=== PATIENT | male | born 1975 | race Caucasian/White ===

== ENCOUNTER 2024-09-12 19:15 | Inpatient (IN) | payer MEDICAID ==
[~2024-09-12] VITALS: Ht 193 cm; Wt 109.1 kg
[2024-09-12] MEDS: HYDROcodone/acetaminophen 10/325mg tab PO ONE (20:00)
--- NOTE | 2024-09-12 20:27 | RADIOLOGY REPORT ---
INDICATION: pain TECHNIQUE: 5 views of the lumbar spine were obtained. COMPARISON: None FINDINGS: No evidence of vertebral fracture or compression deformity. Normal lordotic curvature without signi ficant through. Moderate spondylosis at L5-S1, otherwise minimal to mild. The imaged osseous pelvis and abdominal contents are unremarkable. IMPRESSION: 1. No acute finding of the lumbar spine.
[2024-09-12] MEDS: dexamethasone sod phosphate 10mg/ml inj IV STA (21:58)
[2024-09-12] MEDS: normal saline 1000ML IV soln IVB ONE (22:07)
--- NOTE | 2024-09-13 00:04 | Physician Documentation ---
History of Present Illness ~ Chief Complaint: Back Pain Stated Complaint: BACK PAIN Time Seen by MD: 00:03 OK to notify your PCP?: Yes Primary Medical Doctor: [facility] Source: patient, RN/MD, EMS, RN notes reviewed, EMS notes reviewed, old records Mode of Arrival: EMS Exam Limitations: no limitations HPI BED 16 This patient is a 48 y/o male who presents to ED with chief complaint of back pain. Patient states he has had this pain on and off for the past 5 years after he injured it while changing the breaks on a car. Patient states that for many years this pain would resolve on it's own after a week or two, and he never had insurance so he did not see a doctor for it. He does now have a PCP at [facility], but has never had imaging for his back done. Patient describes this pain as a sharp pain in his lower back, which radiates to the front. Patient reports with certain movements, such as when he is sitting or standing, this pain becomes an electrical jolt of pain. He states that this pain started worsening 6 months ago, but became significantly worse this morning to the point he is no longer able to walk. He was asked but denies any bowel or bladder incontiance. Denies any retention or constipation. States he was organizing a [employer] yesterday and twisted his back, which he thinks started this recent episode of severe pain. Patient denies any other associated symptoms at this time. Patient denies any other alleviating or exacerbating factors. Medication Reconciliation Allergies: Coded Allergies: No Known Allergies (Unverified , 09/12/24) No Active Prescriptions or Reported Meds Past Medical History Past Medical History: Chronic Pain Past Surgical History: tonsillectomy Smoking Status: Never smoker Alcohol Use: None Drug Use: none Review of Systems All Other Systems at this time: Reviewed and Negative Physical Exam Physical Exam Vital Signs: RN Vital Signs have been reviewed: Yes, Temperature: 99.2, Source: Oral, Heart Rate: 63, Respiratory Rate: 16, BP: 124/79, Pulse Oximetry: 93, Weight: 109.090 Oxygen Flow Rate: 0 Physical Exam General: Moderate distress secondary to pain. The patient is well developed, well nourished, nontoxic appearing. Skin: Sage, warm and dry with no rashes. HEENT: Head was normocephalic and atraumatic. Eyes - pupils equal, round, reactive to light and accommodation. Extraocular movements were intact. Conjunctivae were nonicteric. The mouth and oropharynx were clear with moist mucous membranes. There were no pharyngeal exudates or erythema. Neck: Supple and nontender. There was no jugular venous distention, lymphadenopathy, thyromegaly or masses. Chest: Clear to auscultation bilaterally without wheezes, rales or rhonchi. No accessory muscle use. No dullness to percussion. Heart: Rate regular and rhythmic. S1, S2. No murmurs. Palpation of the chest wall was normal. No rubs or thrills. Abdomen: Soft, nontender and nondistended. Positive bowel sounds. No guarding or rebound. No hepatosplenomegaly or palpable masses. Back Pain: Straight leg test positive with 45 degrees bilaterally. Tenderness to palpation to L4-L5. No CVA tenderness. Extremities: No cyanosis, clubbing or edema. The patient moves all extremities. Pulses were equal and symmetric. Neurologic: Cranial nerves II-XII were intact. Sensation was intact to light touch throughout. Motor strength was 5/5 in all four extremities. Deep tendon reflexes were intact in both upper and lower extremities. Motor Sensory Grossly Intact. Psychologic: The patient was oriented to person, place and time. The patient demonstrated appropriate judgement and insight. Progress Progress Note 0014: Paged Hospitalist 0034: Case discussed with hospitalist who agrees to evaluate patient for admission. Results/Orders Reviewed/noted all lab results: Yes Results/Orders Orders - CLAY BROWN MD Urinalysis, Cult If Indicated (09/12/24 19:21) Straight Cath For Urine Sample (09/12/24 19:21) Lumbar Spine Complte (09/12/24 20:19) Drug Screen, Urine (09/13/24 00:05) Urinalysis, Cult If Indicated (09/13/24 00:12) Mri Lumbar Spine (09/13/24 00:13) Page Hospitalist (09/13/24 00:14) Fill Out Med Reconciliation (09/13/24 00:14) Completed Orders - CLAY BROWN MD Hydrocodone/Apap 10/325 ([place] 10/325mg (09/12/24 19:50) Lumbar Spine Complte (09/12/24 20:19) Normal Saline 1000ml (0.9% Sodium Chlori (09/12/24 21:40) Cyclobenzaprine Tablet (Flexeril Tablet) (09/12/24 21:40) Dexamethasone Inj (Decadron 10mg/Ml Inj) (09/12/24 21:40) Cbc/Diff (09/13/24 00:12) Ketorolac Trometh 15mg/Ml Vial (Toradol (09/13/24 00:15) BMP (09/13/24 00:12) Hydromorphone 1 Mg/Ml/Pf (Dilaudid Inj.) (09/13/24 00:15) Medications Received in ER Medications (Trade) Dose Ordered Sig/Gerda Route PRN Reason Start Time Stop Time Status Last Admin Dose Admin ([place] 10/325mg tab) 1 tab ONCE ONCE PO 09/12/24 19:50 09/12/24 19:52 DC 09/12/24 20:00 1 TAB (0.9% sodium chloride (NS) 1000ml IV soln) 1,000 ml ONCE ONCE IVB 09/12/24 21:40 09/12/24 21:42 DC 09/12/24 22:07 1,000 ML (Flexeril tablet) 10 mg ONCE STAT PO 09/12/24 21:40 09/12/24 21:42 DC 09/12/24 21:58 10 MG (Decadron 10mg/ ml inj) 10 mg ONCE STAT IV 09/12/24 21:40 09/12/24 21:42 DC 09/12/24 21:58 10 MG (Toradol injection) 15 mg ONCE ONCE IV 09/13/24 00:15 09/13/24 00:16 DC 09/13/24 00:41 15 MG (Dilaudid inj.) 1 mg ONCE ONCE IV 09/13/24 00:15 09/13/24 00:29 DC 09/13/24 00:43 1 MG Vital Signs 09/12/24 09/12/24 09/12/24 09/12/24 19:22 19:31 20:00 20:23 Temp 99.2 Pulse 70 64 Resp 12 18 18 10 B/P (MAP) 121/91 104/78 (87) Pulse Ox 96 94 09/12/24 09/12/24 09/13/2409/13/25 20:36 23:37 00:41 00:43 Pulse 63 Resp 15 16 16 16 B/P (MAP) 124/79 (94) Pulse Ox 93 O2 Flow Rate 0 09/13/24 02:36 Pulse 70 Resp 16 B/P (MAP) 133/84 (100) Pulse Ox 94 O2 Flow Rate 0 Laboratory Tests Test 09/13/24 00:35 White Blood Count 9.4 Red Blood Count 5.11 Hemoglobin 15.4 Hematocrit 45.0 Mean Corpuscular Volume 88.1 Mean Corpuscular Hemoglobin 30.1 Mean Corpuscular Hemoglobin Concent 34.2 Red Cell Distribution Width 13.8 Platelet Count 287 Mean Platelet Volume 7.7 Neutrophils (%) (Auto) 88.9 H Lymphocytes (%) (Auto) 8.4 L Monocytes (%) (Auto) 2.2 Eosinophils (%) (Auto) 0.2 Basophils (%) (Auto) 0.3 Neutrophils # (Auto) 8.4 H Lymphocytes # (Auto) 0.8 L Monocytes # (Auto) 0.2 Eosinophils # (Auto) 0.0 Basophils # (Auto) 0.0 CBC Comment Sodium Level 141 Potassium Level 3.9 Chloride Level 106 Carbon Dioxide Level 23.3 L Anion Gap 12 Blood Urea Nitrogen 14 Creatinine 1.04 Estimated GFR/1.73 m2 76 BUN/Creatinine Ratio 13.5 Glucose Level 106 H Calcium Level 9.0 Albumin 3.9 Chemistry Comments Re-Evaluation Re-Evaluation : Re-Evaluation: Improved Progress Patient was seen and examined. Patient is given reassurance. Patient is having extreme pain has a history of back pain this is one was more painful presentations in the past. Has been going on for just over half a week. Patient is having difficulty ambulating as well as breathing. X-ray was reassur ing in that there was no obvious gross deformity. Patient denies any bowel or bladder incontinence no neurological symptoms or deficits. MRI was ordered for the patient. Patient was then given Dilaudid Toradol Flexeril Decadron also saline and an earlier dose of [place] 10 mg. Patient still continues to have significant pain. Patient was then admitted to the hospitalist service for further workup and care. Continuous engine monitor interpretation shows normal sinus rhythm heart rate 60s, no ectopy, normal, my interpretation. Pulse oximetry monitor interpretation shows normal oxygenation at 94% room air, normal, my interpretation. EKG/XRAY/CT/US/VASC/MRI Chest X-Ray : Interpreted By: both Additional Comments Patient: DELANEY PAREKH Medical Record: [id number] [facility] : 1975, Age: 48 Sex: Male Location: ER Patient Status: [facility] ER Service Date/Time: 09/12/242018 Ordering Physician: CLAY BROWN MD Exam: LUMBAR SPINE COMPLTE INDICATION: pain TECHNIQUE: 5 views of the lumbar spine were obtained. COMPARISON: None FINDINGS: No evidence of vertebral fracture or compression deformity. Normal lordotic curvature without significant through. Moderate spondylosis at L5-S1, otherwise minimal to mild. The imaged osseous pelvis and abdominal contents are unremarkable. IMPRESSION: 1. No acute finding of the lumbar spine. Electronically Signed by:J CARLOS SINGH MD Date & Time: 09/12/242024 Dictated by: J CARLOS SINGH MD Dictation date and time: 09/12/242024 Primary Care Provider: NO PRIMARY CARE PROVIDER cc: CLAY BROWN MD ~ IMAGES REVIEWED BY EDMD DR. BROWN WHO AGREES WITH ABOVE FINDINGS Medical Decision Making Additional info obtained from: old records Differential Dx:Considerations: Include: AAA, Aortic dissection, Appendicitis, Bowel obstruction, Cholelithiasis, Cholangitis, DJD, Fracture, Hepatitis, HNP, Musculoskeletal pain, Pancreatitis, Pyelonephritis, Renal infarction, Strain, Urinary obstruction, Urolithiasis, Urinary tract infection, Other Departure Time of Disposition: 00:34 Disposition: 09 ADMITTED INPATIENT Admitted to Inpatient Unit: yes, to hospitalist Admission Level of Care: Ortho Impression: Primary Impression: Intractable low back pain Additional Impression: Unable to ambulate Condition: Guarded Referrals: NO PRIMARY CARE PROVIDER (PCP) Prescriptions No Active Prescriptions or Reported Meds Education Educated: Patient Educated regarding: diagnosis Signature Scribe Signature: Scribed for Clay Brown MD by April Wisdom 09/13/24 00:35 Attestation: The note accurately reflects work and decisions made by me.Clay Brown MD 09/13/24 00:04 CLAY BROWN MD Sep 13, 2024 00:04
[2024-09-13] MEDS: ketorolac trometh 15mg/ml vial 15 MG/ML ML IV ONE (00:41)
[2024-09-13 00:49] LABS: MEAN PLATELET VOLUME 7.7 FL (7.4-10.4); RED CELL DISTRIBUTION WIDTH 13.8 % (11.5-14.5)
[2024-09-13 00:52] LABS: CREATININE 1.04 MG/DL (0.60-1.10); TOTAL CARBON DIOXIDE 23.3 MMOL/L (24-32); eCRCL 107 ML/MIN; eGFR 76 ML/MIN
[2024-09-13] MEDS ORDERED: magnesium sulf-water 4G/100mL 100 ML IV PRN (02:40)
[2024-09-13] MEDS ORDERED: HYDROmorphone/PF 0.2 MG/ML SYRINGE IV PRN (02:40)
[2024-09-13] MEDS ORDERED: ondansetron/PF 4mg/2ml inj IV PRN (02:40)
[2024-09-13] MEDS ORDERED: HYDROmorphone inj. 0.5 MG/0.5 ML DISP.SYRIN IV PRN (02:40)
[2024-09-13] MEDS ORDERED: magnesium sulf-water 2g/50mL 50 ML IV PRN (02:40)
[2024-09-13] MEDS ORDERED: mag hydrox/Alum hydrox/simeth 30ml oral suspension PO PRN (02:40)
[2024-09-13] MEDS ORDERED: potassium Cl 40MEQ/1/2NS 520ml 520 ML IV PRN (02:40)
[2024-09-13] MEDS ORDERED: magnesium Cl slow-release 64mg tablet PO PRN (02:40)
[2024-09-13] MEDS ORDERED: potassium Cl 20 mEq SR tablet PO PRN ×2 (02:40)
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
--- NOTE | 2024-09-13 06:10 | CONSULTATION REPORT - RESIDENT ---
Consult Providers to CC Resident Creating Document: VERNON LEACH RES History of Present Illness Allergies: Coded Allergies: No Known Allergies (Unverified , 09/12/24) Home Medications Home Medications Active No Active Prescriptions or Reported Medications Past Medical History Past Medical History Back pain Depression Psoriasis Past Surgical History Surgical History Comment Tonsillectomy Shoulder cyst removal Cysts removal in right arm. Family History Family History: FH: diabetes mellitus (father has diabetes) Exam Vitals: Vital Signs Date Time Temp Pulse Resp B/P (MAP) Pulse Ox O2 Delivery O2 Flow Rate FiO2 09/13/24 05:27 16 09/13/24 04:17 77 122/80 (94) 92 0 09/12/24 19:22 99.2 Diagnostic Data Last Recorded Lab Results: 09/13/245 09/13/2434 Date of Service: Sep 13, 2024 Billing Provider: LUCERO JONES MD, SANJAY, RES Sep 13, 2024 06:10
[2024-09-13] MEDS: K and/or MAG REPLACEMENT MC SCH (07:07)
[2024-09-13] MEDS: HYDROcodone/acetaminophen 10/325mg tab PO SCH (08:00)
[2024-09-13] MEDS: docusate sod 100mg capsule PO SCH (08:00)
[2024-09-13] MEDS: clobetasol propionate ointment 15gm TP SCH (08:00)
[2024-09-13] MEDS: enoxaparin 40mg/0.4ml syringe SQ SCH (08:53)
[2024-09-13 09:43] LABS: LEUKOCYTE ESTERASE ,URINE NEGATIVE (Neg); NITRITES, URINE NEGATIVE (Neg); OCCULT BLOOD,URINE TRACE-INTACT (Neg)
[2024-09-13 09:44] LABS: UA COLLECTION TYPE VOIDED
[2024-09-13 09:50] LABS: MUCUS STRANDS MODERATE /LPF (Neg); SQUAMOUS EPITHELIAL CELL,UR FEW /LPF (FEW)
[2024-09-13 09:51] LABS: AMORPHOUS PHOSPHATES 1+
[2024-09-13 09:56] LABS: URINE AMPHETAMINE SCREEN NEGATIVE (Neg); URINE BARBITUATE SCREEN NEGATIVE (Neg); URINE BENZODIAZEPINES SCREEN NEGATIVE (Neg); URINE CANNABINOID SCREEN NEGATIVE (Neg); URINE COCAINE SCREEN NEGATIVE (Neg); URINE METHADONE SCREEN NEGATIVE (Neg); URINE OPIATE SCREEN POSITIVE (Neg); URINE PHENCYCLIDINE SCREEN NEGATIVE (Neg)
[2024-09-13] MEDS: duloxetine 30mg CAPSULE.DR PO SCH (12:19)
--- NOTE | 2024-09-13 13:17 | RADIOLOGY REPORT ---
PROCEDURE: MR MRI LUMBAR SPINE INDICATION: Intractable lower lumbar pain Exam Date: 09/13/2024 10:34 AM COMPARISON: DI LUMBAR SPINE COMPLTE on DOS: 09/12/24 TECHNIQUE: MRI lumbar spine without intravenous contrast. FINDINGS: The lumbar alignment is intact. There are degenerative endplate changes including modic endplate ch anges with anterior and lateral osteophytes throughout the lumbar spine. The visualized distal spinal cord and conus medullaris are within normal limits. The conus medullaris appears to terminate withi n normal limits. The visualized retroperitoneal and paraspinal soft tissues are unremarkable. The following axial levels are detailed below: T12-L1: There is a mild circumferential disc bulge. No significant central canal or neuroforaminal s tenosis. L1-L2: There is a mild circumferential disc bulge. No significant central canal or neuroforaminal s tenosis. L2-L3: Unremarkable. L3-L4: There is a moderate circumferential disc bulge complicated by facet arthropathy associated w ith mild to moderate bilateral neuroforaminal stenosis. No significant central canal stenosis. L4-L5: There is a severe circumferential disc bulge complicated by facet arthropathy narrowing the central canal to 8 mm with associated moderate bilateral neuroforaminal stenosis. L5-S1: There is a moderate circumferential disc bulge complicated by facet arthropathy associated wi th moderate bilateral neuroforaminal stenosis. No significant central canal stenosis. IMPRESSION: 1. Multilevel degenerative disease. Moderate central canal stenosis L4-Neural foraminal stenosis as above. HS:Y
[2024-09-13 14:21] VITALS: BP 128/72; PULSE 75; RESP 16; TEMP 98.4; O2SAT 93
[2024-09-13 15:28] VITALS: RESP 16
--- NOTE | 2024-09-13 17:47 | PROGRESS NOTE ---
Daily Progress Note Providers to CC ~ Antibiotic Timeout Antibiotic Ordered?: No Subjective Patient has no new complaints however states that he has had several kinds of low back pain. Sometimes it is like electric shock and at times it is muscle cramp. Patient states he can barely move his legs but not able to stand up. There was a time when he could not get up and had to crawl for nearly 8 hours to get to his phone. Patient states that he has not lost control of his bowel or bladder but did have an episode one time where he could not make it to the bathroom quick enough after he had taken magnesium tablets . Objective Vital Signs Date Time Temp Pulse Resp B/P (MAP) Pulse Ox O2 Delivery O2 Flow Rate FiO2 09/13/24 17:14 16 09/13/24 15:28 Room Air 0.0 09/13/24 14:21 98.4 75 128/72 (90) 93 Result Diagram: 09/13/24 0035 09/13/24 0035 Gen. awake alert oriented asymptomatic HEENT: Normocephalic, atraumatic, extraocular movements are intact, sclera anicteric, conjunctiva pinkish, moist oral mucosa, no rash or ulcers. NECK: Supple, no JVD, trachea midline. CHEST: Clear to auscultation, no wheezes crackles or rhonchi. HEART: Regular rate rhythm, no murmur gallop or rub. ABDOMEN: Soft, nontender, no organomegaly. EXTREMITIES: No cyanosis clubbing or edema. NEURO EXAM: Bilateral lower extremity weakness , unable to raise leg straight up against gravity MUSCULOSKELETAL : No joint swelling or deformities. SKIN: No rash or ulcers noted. Other Results Medications reviewed Problem\Assessment\Plan 48 years old male with a history of chronic back pain, presented to the ER for severe low back pain 10/10 radiating down to his thighs. Patient stated his hip joints felt stiff. Pain aggravated by laughing coughing and hiccuping. 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 1. Bilateral lower extremity weakness 2. Acute flare-up of Chronic low back pain We will start him on muscle relaxants. Continue address pain control as necessary.Consult neurosurgeon. Date of Service: Sep 13, 2024 Billing Provider: BRI MCARTHUR MD Common Visit Codes: [id number] INP/OBS CARE(HIGH) BRI MCARTHUR MD Sep 13, 2024 17:47
[2024-09-13 18:00] VITALS: BP 125/80; PULSE 75; RESP 17; TEMP 98; O2SAT 96
[2024-09-13 22:00] VITALS: BP 119/79; PULSE 68; RESP 16; TEMP 97.4; O2SAT 96
[2024-09-14 05:36] LABS: MEAN PLATELET VOLUME 7.7 FL (7.4-10.4); RED CELL DISTRIBUTION WIDTH 13.7 % (11.5-14.5)
[2024-09-14 05:59] LABS: CREATININE 1.08 MG/DL (0.60-1.10); TOTAL CARBON DIOXIDE 24.7 MMOL/L (24-32); eCRCL 103 ML/MIN; eGFR 73 ML/MIN
[2024-09-14 06:00] VITALS: BP 112/73; PULSE 68; RESP 16; TEMP 97.7; O2SAT 97
[2024-09-14 10:00] VITALS: BP 107/77; PULSE 61; RESP 18; TEMP 98; O2SAT 97
[2024-09-14] MEDS: Chloraseptic (Phenol) Spray 177ml MM PRN (16:12)
--- NOTE | 2024-09-14 17:17 | PROGRESS NOTE ---
Daily Progress Note Providers to CC ~ Antibiotic Timeout Antibiotic Ordered?: No Subjective No new complaints, patient states he was having a bad day but is not suicidal any moree. Objective Vital Signs Date Time Temp Pulse Resp B/P (MAP) Pulse Ox O2 Delivery O2 Flow Rate FiO2 09/14/24 16:12 18 09/14/24 10:00 98.0 61 107/77 (87) 97 Room Air 09/13/24 15:28 0.0 Result Diagram: 09/14/24 0508 09/14/24 0508 Gen. awake alert oriented asymptomatic HEENT: Normocephalic, atraumatic, extraocular movements are intact, sclera anicteric, conjunctiva pinkish, moist oral mucosa, no rash or ulcers. NECK: Supple, no JVD, trachea midline. CHEST: Clear to auscultation, no wheezes crackles or rhonchi. HEART: Regular rate rhythm, no murmur gallop or rub. ABDOMEN: Soft, nontender, no organomegaly. EXTREMITIES: No cyanosis clubbing or edema. NEURO EXAM: Bilateral lower extremity weakness , unable to raise leg straight up against gravity MUSCULOSKELETAL : No joint swelling or deformities. SKIN: No rash or ulcers noted. Other Results Medications reviewed Problem\Assessment\Plan 48 years old male with a history of chronic back pain, presented to the ER for severe low back pain 10/10 radiating down to his thighs. Patient stated his hip joints felt stiff. Pain aggravated by laughing coughing and hiccuping. 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 1. Bilateral lower extremity weakness 2. Acute flare-up of Chronic low back pain 3.Suicidal intent : Patient states he is not suicidal and was having a bad day . Has not been able to work for last five years. Continue pain control, muscle relaxants and PT .No surgery indicated per neurosurgery. Patient will likely need SNF . He is medically cleared for [facility] evaluation. Date of Service: Sep 14, 2024 Billing Provider: BRI MCARTHUR MD Common Visit Codes: [id number] INP/OBS CARE(HIGH) BRI MCARTHUR MD Sep 14, 2024 17:17
[2024-09-14 18:00] VITALS: BP 114/77; PULSE 86; RESP 16; TEMP 97.4; O2SAT 94
[2024-09-14 20:35] VITALS: RESP 16; O2SAT 94
[2024-09-14 22:00] VITALS: BP 98/58; PULSE 81; RESP 18; TEMP 97.3; O2SAT 95
[2024-09-15 06:00] VITALS: BP 113/72; PULSE 80; RESP 16; TEMP 97.5; O2SAT 93
[2024-09-15 06:15] LABS: MEAN PLATELET VOLUME 8.1 FL (7.4-10.4); RED CELL DISTRIBUTION WIDTH 13.6 % (11.5-14.5)
[2024-09-15 06:26] LABS: CREATININE 0.97 MG/DL (0.60-1.10); TOTAL CARBON DIOXIDE 28.5 MMOL/L (24-32); eCRCL 114 ML/MIN; eGFR 83 ML/MIN
[2024-09-15 07:10] VITALS: RESP 16; O2SAT 93
[2024-09-15 10:00] VITALS: BP 114/84; PULSE 84; RESP 16; TEMP 98; O2SAT 94
[2024-09-15] MEDS: magnesium hydroxide 30ml (MOM) UD suspension PO PRN (10:21)
--- NOTE | 2024-09-15 16:45 | PROGRESS NOTE ---
Daily Progress Note Providers to CC ~ Antibiotic Timeout Antibiotic Ordered?: No Subjective No new complaints, is able to move his legs side ways a little better but still not able to lift his legs. Objective Vital Signs Date Time Temp Pulse Resp B/P (MAP) Pulse Ox O2 Delivery O2 Flow Rate FiO2 09/15/24 16:06 18 09/15/24 10:00 98.0 84 114/84 (94) 94 Room Air 09/13/24 15:28 0.0 Result Diagram: 09/15/2452609/15/24526 Gen. awake alert oriented asymptomatic HEENT: Normocephalic, atraumatic, extraocular movements are intact, sclera anicteric, conjunctiva pinkish, moist oral mucosa, no rash or ulcers. NECK: Supple, no JVD, trachea midline. CHEST: Clear to auscultation, no wheezes crackles or rhonchi. HEART: Regular rate rhythm, no murmur gallop or rub. ABDOMEN: Soft, nontender, no organomegaly. EXTREMITIES: No cyanosis clubbing or edema. NEURO EXAM: Bilateral lower extremity weakness , unable to raise leg straight up against gravity MUSCULOSKELETAL : No joint swelling or deformities. SKIN: No rash or ulcers noted. Other Results Medications reviewed Problem\Assessment\Plan 48 years old male with a history of chronic back pain, presented to the ER for severe low back pain 10/10 radiating down to his thighs. Patient stated his hip joints felt stiff. Pain aggravated by laughing coughing and hiccuping. 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 1. Bilateral lower extremity weakness : Patient reports some improvement in the movement of his lower extremities. 2. Acute flare-up of Chronic low back pain. Pain control is adequate 3.Suicidal intent : Patient stated he is not suicidal and was having a bad day . Has not been able to work for last five years. Continue pain control, muscle relaxants and PT .No surgery indicated per neurosurgery. Patient will likely need SNF . He is medically cleared and is awaiting for [facility] evaluation. Date of Service: Sep 15, 2024 Billing Provider: BRI MCARTHUR MD Common Visit Codes: [id number] INP/OBS CARE(MOD) BRI MCARTHUR MD Sep 15, 2024 16:45
[2024-09-15 18:00] VITALS: BP 114/83; PULSE 91; RESP 17; TEMP 97.6; O2SAT 92
[2024-09-15 20:00] VITALS: RESP 17; O2SAT 92
[2024-09-15 22:00] VITALS: BP 106/73; PULSE 84; RESP 16; TEMP 97.9; O2SAT 94
[2024-09-16 06:54] VITALS: BP 104/65; PULSE 67; RESP 18; TEMP 98.1; O2SAT 92
[2024-09-16 07:29] LABS: MEAN PLATELET VOLUME 8.2 FL (7.4-10.4); RED CELL DISTRIBUTION WIDTH 13.6 % (11.5-14.5)
[2024-09-16 08:06] LABS: CREATININE 1.06 MG/DL (0.60-1.10); TOTAL CARBON DIOXIDE 27.5 MMOL/L (24-32); eCRCL 105 ML/MIN; eGFR 75 ML/MIN
[2024-09-16 10:17] VITALS: BP 111/75; PULSE 78; RESP 14; TEMP 97.8; O2SAT 94
--- NOTE | 2024-09-16 12:53 | PROGRESS NOTE ---
Daily Progress Note Providers to CC ~ Antibiotic Timeout Antibiotic Ordered?: No Subjective No new complaints, states he continues to have low back pain and leg pain Objective Vital Signs Date Time Temp Pulse Resp B/P (MAP) Pulse Ox O2 Delivery O2 Flow Rate FiO2 09/16/24 10:17 97.8 78 14 111/75 (87) 94 Room Air 09/13/24 15:28 0.0 Result Diagram: 09/16/24 0556 09/16/24 0556 Gen. awake alert oriented asymptomatic HEENT: Normocephalic, atraumatic, extraocular movements are intact, sclera anicteric, conjunctiva pinkish, moist oral mucosa, no rash or ulcers. NECK: Supple, no JVD, trachea midline. CHEST: Clear to auscultation, no wheezes crackles or rhonchi. HEART: Regular rate rhythm, no murmur gallop or rub. ABDOMEN: Soft, nontender, no organomegaly. EXTREMITIES: No cyanosis clubbing or edema. NEURO EXAM: Bilateral lower extremity weakness , unable to raise leg straight up against gravity MUSCULOSKELETAL : No joint swelling or deformities. SKIN: No rash or ulcers noted. Other Results Medications reviewed Problem\Assessment\Plan 48 years old male with a history of chronic back pain, presented to the ER for severe low back pain 10/10 radiating down to his thighs. Patient stated his hip joints felt stiff. Pain aggravated by laughing coughing and hiccuping. 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 1. Bilateral lower extremity weakness : Continue PT 2. Acute flare-up of Chronic low back pain. Pain control is adequate.Continue pain control, muscle relaxants and PT .No surgery indicated per neurosurgery. 3.Suicidal intent : Patient stated he is not suicidal and was having a bad day . Has not been able to work for last five years. Patient has been cleared by [facility]. 4. Code status: Full code 5. Disposition: Awaiting placement. Date of Service: Sep 16, 2024 Billing Provider: BRI MCARTHUR MD Common Visit Codes: [id number] INP/OBS CARE(MOD) BRI MCARTHUR MD Sep 16, 2024 12:53
[2024-09-16 18:00] VITALS: BP 118/78; PULSE 89; RESP 15; TEMP 98; O2SAT 93
[2024-09-16] MEDS: clobetasol propionate ointment 15gm TP SCH (19:00)
[2024-09-16 22:00] VITALS: BP 122/84; PULSE 71; RESP 18; TEMP 97.8; O2SAT 94
[2024-09-16 23:43] VITALS: O2SAT 93
[2024-09-17 05:41] LABS: MEAN PLATELET VOLUME 8.0 FL (7.4-10.4); RED CELL DISTRIBUTION WIDTH 13.4 % (11.5-14.5)
[2024-09-17 05:50] LABS: CREATININE 0.99 MG/DL (0.60-1.10); TOTAL CARBON DIOXIDE 27.6 MMOL/L (24-32); eCRCL 112 ML/MIN; eGFR 81 ML/MIN
[2024-09-17 06:00] VITALS: BP 122/78; PULSE 67; RESP 16; TEMP 97.7; O2SAT 96
[2024-09-17 10:00] VITALS: BP 109/85; PULSE 87; RESP 16; TEMP 97.3; O2SAT 96
[2024-09-17] MEDS ORDERED: CYCL-1 PO (11:18)
[2024-09-17] MEDS ORDERED: HYDR-3972 PO (11:18)
[2024-09-17] MEDS ORDERED: LIDO700A47 TP (11:18)
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
== END 2024-09-17 13:35 | disposition home health service (06) | DRG 347 ==
LOC: ER 19:16 → ED HOLD 09-13 02:48 → ORTHO 4S 09-13 14:15
PROVIDERS: ADMIT Internal Medicine; ATTEND Internal Medicine
DX: M54.50 Low back pain, unspecified (principal); R45.851 Suicidal ideations; G89.29 Other chronic pain; F32.A Depression, unspecified; Z74.01 Bed confinement status
CPT/HCPCS: 36415; 72110; 72148; 80048; 80053; 80305; 81001; 83735; 85025; 87081; 87088; 96361; 96374; 97110; 97116; 97162; 97530; 99285; G0378; J1100; J1171; J1650; J1885; J2270; J7030